=== PATIENT | female | born 1980 ===

== ENCOUNTER 2024-11-24 13:08 | Outpatient (AMB) | payer BC, SELFPAY ==
[2024-11-24 13:29] VITALS: BP 115/78; PULSE 91; RESP 18; TEMP 36.6; O2SAT 96; BMI 29.2
--- NOTE | 2024-11-24 13:29 | AMB.GYNCLNOT ---
Vital Signs 11/24/24 13:29 Height 1.63 m Height Method Stated Weight 77.337 kg Weight Measurement Method Standing Scale BMI 29.2 BP 115/78 Blood Pressure Source Automatic Cuff Blood Pressure Location Left Upper Arm Position Sitting Respiration 18 Pulse 91 Pulse Source Monitor Temp 98 F Temp Source Oral Pulse Oximetry (%) 96 Oxygen Delivery Method Room Air Allergies/Home Meds Allergies & Medications Allergies NKA Allergy (Unknown, Uncoded 03/03/03 20:45) No Known Allergies Allergy (Unknown, Uncoded 08/16/12 02:07) Medication Reconciliation medroxyprogesterone 10 mg tablet (Provera) 10 mg PO QDAY 10 days #10 tabs 11/26/24 [Rx] Intake Visit Data Collection New Patient or Established: New Patient (never been to [facility]) Reason for Visit:: ANNUAL WELLNESS Seen by Clinical Staff ONLY (RN/MA): No 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 Do You Feel Safe at Home: Yes Authorities Contacted: N/A PCP or OBGYN visit in last 3 months: No Hx Now: No Are you currently on any form of Control: No Pain Present Currently: No Pain Scale Used: Johnston-Pires/Numerical Pain scale:: 0 Smoking Status Smoking Status: Never smoker 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 1. Little interest or pleasure in doing things: not at all 2. Feeling down, depressed, or hopeless: not at all Total score: 0 PHQ-9 3. Trouble falling or staying asleep, or sleeping too much: Not at all 4. Feeling tired or having little energy: Not at all 5. Poor appetite or overeating: Not at all 6. Feeling bad about yourself - or that you are a failure or have let yourself or your family down: Not at all 7. Trouble concentrating on things, such as reading the newspaper or watching television: Not at all 8. Moving or speaking so slowly that other people could have noticed? - Or the opposite - being so fidgety or restless that you have been moving around a lot more than usual: not at all 9. Thoughts that you would be better off or of hurting yourself in some way: Not at all Total score: 0 Source: Developed by Drs. Harvey Locke, Cuca Garcia, Romain Cody and colleagues, with an educational lorelei from [employer]. Depression screen completed yes Social History Living Situation History Marital Status: Lives With: Family Housing: House Housing Other:: Has a 25 and 20 year old Tobacco History Smoking Status: Never smoker Second Hand Smoke Exposure: No Alcohol History Alcohol Intake: Current Alcohol Intake Frequency: holidays/special occasions only Domestic Abuse History Do You Feel Safe at Home: Yes Past Medical History Past Medical History Have you ever been diagnosed with any of the following: Reproductive Problems Breast Cancer: No Endometriosis: No Fibroids: No Genital Herpes: No Gonorrhea: No Pelvic Inflammatory Disease: No Polycystic Ovarian Syndrome: No Previous Pregnancies: Yes (history of x 2 in the past) Endocrine Problems Diabetes Mellitus Type 2: No Hyperthyroidism: No Hypothyroidism: No Pituitary Disease: No Blood Problems Anemia: No Psychologic Problems Depression: No Anxiety: No Other Problems Hospitalization: Yes (For childbirth x 2) History of Present Illness HPI Narrative The patient is a 44 y/o hx x two 25 and 30 years ago. Both her kids go to [employer]. Her son is the oldest and he is studying architecture and her daughter is 20 and going to try to be a speech pathologist. The patient is . Not using anything for control. I used to see her in [place]. The last visit was in 2022. I told the patient then she was perimenopausal . She did not release any records or labs. She is due for a pap smear and mammogram. She has a history of abnormal paps in 2019. Review of Systems Review of Systems Narrative Review of Systems: No cycle since 03/20. Minor hot flashes. No night sweats. She reports leaking urine with cough sneeze and exercise. No urge. She is interested in a sling. Exam General General Appearance: alert, in no apparent distress, comfortable, cooperative, healthy appearing and well groomed Neck Neck exam: Present normal inspection, full ROM and trachea midline Chest Chest inspection: Present normal inspection and symmetric chest wall rise Exp Chest Breast: bilateral: other (Normal breast exam bilaterally.) Resp Respiratory exam: Present normal lung sounds bilaterally Card Cardiovascular exam: Present regular rate, normal rhythm and normal heart sounds Abdominal Abdominal exam: Present soft and normal bowel sounds External exam: Present normal external exam Speculum exam: Present normal speculum exam Bimanual exam: Present normal bimanual exam and other (2+ cystocele present) Extremities Extremities exam: Present normal inspection and full ROM Psych Psychiatric exam: Present normal affect and normal mood Skin Skin exam: Present warm, dry, intact and normal color Assessment & Plan Diagnosis / Problem List (1) Women's annual routine gynecological examination: Status: Acute Assessment and Plan: Pap with HPV done Mammogram ordered (2) Secondary amenorrhea: Status: Acute Assessment and Plan: PG withdrawl Check FSH, TSH, E2, Prolactin, LH Check US Offered HRT if menopausal (3) Urinary, incontinence, stress female: Status: Acute Assessment and Plan: Refer to Dr Goncalves for a sling Additional Plan Follow Up: 1 Year Office Procedures OB Clinic LOC & Office Proc's Nursing/Assessment Patient Status: Initial/New Patient OB Clinic Nursing Assessment: Medication Reconciliation, Update PMH in EMR and Vital Signs OB Clinic Coordination of Care: Complex Care and Chronic Disease 1-5, Consent,records obtained, informed consent, Education Simp Pt/Fam, Lab and Imaging orders and Staff clarify orders Miscellaneous Interventions: Pelvic/Pap Smear Set up New Patient Charge New Patient Point Assignment: 1119 New Patient Point Charge: PRORATE CLERK Level 4 ([id number]) AGRICULTURE PROFESSOR: Papsmear Pap Smear Procedure Chaparone in room during procedure?: No Pre-op diagnosis general: annual wellness exam Post-op diagnosis procedure note: Same Procedure Notes:: Pap with HPV done Papsmear completed: yes
== END 2024-11-24 14:11 | disposition home or self-care (01) ==
LOC: HODSOBC 13:08
PROVIDERS: PCP Family Medicine; Referring Provider Family Medicine; Supervising Provider Obstetrics & Gynecology; Visit Provider Obstetrics & Gynecology
DX: Z01.411 Encounter for gynecological examination (general) (routine) with abnormal findings (principal); Z11.51 Encounter for screening for human papillomavirus (HPV); N39.3 Stress incontinence (female) (male); N91.1 Secondary amenorrhea; N81.10 Cystocele, unspecified
CPT/HCPCS: 99204; G0463

== ENCOUNTER → 2024-11-29 | Outpatient (CLI) | payer BC, SELFPAY ==
[2024-11-29 12:16] LABS: Basophils % (Auto) 1 % (0-2.5); Eosinophils # (Auto) 0.1 Thou/mm3 (0.0-0.5); Eosinophils % (Auto) 2 % (0-10); Hematocrit 38.8 % (36.0-46.0); Hemoglobin 13.3 g/dL (12.0-16.0); Immature Granulocytes % (Auto) 0 % (0-0); Immature Granulocytes Auto 0.02 Thou/mm3 (0.00-0.00); Lymphocytes # (Auto) 2.1 Thou/mm3 (1.0-4.8); Lymphocytes % (Auto) 33 % (10-50); Mean Corpuscular HGB Conc 34.3 g/dl (31.0-37.0); Mean Corpuscular Hemoglobin 29.8 pg (25.0-35.0); Mean Corpuscular Volume 87 fL (80-100); Monocytes # (Auto) 0.5 Thou/mm3 (0.0-0.8); Monocytes % (Auto) 8 % (0-12); Neutrophils # (Auto) 3.6 Thou/mm3 (1.8-7.7); Neutrophils % (Auto) 57 % (37-80); Nucleated Red Blood Cell % 0 /100 WBC (0); Platelet Count 317 Thou/mm3 (140-440); RDW Standard Deviation 40.7 fL (36.4-46.3); Red Blood Count 4.47 Miln/mm3 (4.00-5.20); White Blood Count 6.4 Thou/mm3 (3.6-11.0)
[2024-12-14 06:18] LABS: Estradiol, Ultrasensitive* 7 pg/mL; Luteinizing Hormone* 23.4 mIU/mL; Prolactin* 5.5 ng/mL
== END | disposition home or self-care (01) ==
PROVIDERS: PCP Obstetrics & Gynecology; Referring Provider Obstetrics & Gynecology; Visit Provider Obstetrics & Gynecology
DX: N91.1 Secondary amenorrhea (principal)
CPT/HCPCS: 36415; 82670; 83002; 84146; 85025